=== PATIENT | female | born 1985 | race Caucasian/White ===

== ENCOUNTER 2025-01-30 06:49 | Day surgery (SDC) | payer OTHER ==
[2025-01-29 11:45] VITALS: BMI 24.0
[2025-01-30] MEDS ORDERED: LIDOCAINE HCL 1%, 10 MG/ML (20ML VIAL) ONE ×2 (11:56→12:30)
[2025-01-30] MEDS ORDERED: ISOSULFAN BLUE 50 MG/5 ML VIAL SQ ONE (11:56)
[2025-01-30] MEDS ORDERED: METHYLENE BLUE 50 MG/10 ML AMPUL ONE (12:29)
[2025-01-30] MEDS ORDERED: MIDAZOLAM HCL 2 MG/2 ML SINGLE DOSE VIAL ONE (12:47)
[2025-01-30] MEDS ORDERED: ROCURONIUM BROMIDE 50 MG/5 ML SYRINGE ONE ×2 (12:48→13:19)
[2025-01-30] MEDS ORDERED: PROPOFOL 20 ML ONE (12:48)
[2025-01-30] MEDS: VANCOMYCIN 1 GM in D5W (PRE-DOCKED) 1,000 MG/250 ML (RESTRICTED TO ID ONLY IVPB ONE (13:00)
[2025-01-30] MEDS ORDERED: HYDROmorphone HCl 2 MG/ML VIAL ONE (13:09)
[2025-01-30] MEDS: LIDOCAINE HCL 1%, 10 MG/ML (20ML VIAL) NR ONE (13:11)
[2025-01-30] MEDS ORDERED: SUGAMMADEX SODIUM 200 MG/2 ML VIAL ONE (13:19)
[2025-01-30] MEDS ORDERED: KETOROLAC TROMETHAMINE 30 MG/1 ML VIAL ONE (13:19)
[2025-01-30] MEDS ORDERED: ACETAMINOPHEN INJECTION 100 ML ONE (13:23)
[2025-01-30] MEDS: LACTATED RINGERS SOLUTION 1,000 ML IV SCH (15:15)
[2025-01-30] MEDS ORDERED: oxyCODONE HCL 5 MG TABLET PO PRN (15:25)
[2025-01-30] MEDS: ACETAMINOPHEN 325 MG TABLET (FP) PO SCH (15:49)
[2025-01-30] MEDS ORDERED: ONDANSETRON 4 MG/2 ML VIAL ONE (17:27)
[2025-01-30] MEDS: ONDANSETRON 4 MG/2 ML VIAL IVPUSH PRN (17:29)
[2025-01-30] MEDS: oxyCODONE HCL 5 MG TABLET PO PRN (20:16)
[2025-01-31 15:27] VITALS: BP 94/56; PULSE 84; RESP 17; TEMP 99
== END 2025-01-31 16:35 | disposition home or self-care (01) ==
LOC: JASU-SURG 06:49 → JASUSAT 06:49 → J5S 17:55 → JASUSAT 01-31 16:35
PROVIDERS: ATTEND Surgery
PROC: 0HTT0ZZ Resection of Right Breast, Open Approach (ICD-10-PCS; principal; 2025-01-30 13:00)
PROC: 07B50ZX Excision of Right Axillary Lymphatic, Open Approach, Diagnostic (ICD-10-PCS; 2025-01-30 13:00)
DX: C50.911 Malignant neoplasm of unspecified site of right female breast (principal); Z17.0 Estrogen receptor positive status [ER+]; Z92.21 Personal history of antineoplastic chemotherapy
CPT/HCPCS: 76098-TC-FY; 78195-TC; 81025; 86850; 86900; 86901; 86922; 88305-TC; 88307-TC; 88309-TC; 88342-TC; 94760; A9541; J0131; Q9968

== ENCOUNTER → 2025-02-27 | Day surgery (SDC) | payer OTHER | END | disposition home or self-care (01) | LOC: JRADUS-SUR 13:39 | PROVIDERS: ATTEND Surgery | PROC: 0H9U3ZX Drainage of Left Breast, Percutaneous Approach, Diagnostic (ICD-10-PCS; principal; 2025-02-27) | DX: N63.20 Unspecified lump in the left breast, unspecified quadrant (principal); C50.911 Malignant neoplasm of unspecified site of right female breast | CPT/HCPCS: 19083; 76642-TC-LT ==